=== PATIENT | female | born 1990 | race Caucasian/White ===

== ENCOUNTER 2017-02-05 21:01 | Emergency (ER) | payer SELFPAY ==
[~2017-02-05] VITALS: Ht 172.7 cm; Wt 63.0 kg
[2017-02-05 23:12] VITALS: BP 123/75
[2017-02-05] MEDS ORDERED: SODIUM CHLORIDE 0.9% 500 ML IV ONE (23:46)
[2017-02-06 00:13] LABS: BASOPHILS % 0.3 % (0.0-2.0); EOSINOPHILS % 0.4 % (0.0-5.0); HEMATOCRIT. 39.8 % (36.0-48.0); HEMOGLOBIN. 13.6 g/dL (12.0-16.0); LYMPHOCYTES % 15.3 % (20.0-50.0); MEAN CORPUSCULAR HEMOGLOBIN 32.4 pg (28.0-32.0); MEAN CORPUSCULAR VOLUME 94.7 fL (81.0-99.0); MONOCYTES % 2.4 % (2.0-8.0); NEUTROPHILS % 81.6 % (40.0-76.0); PLATELET 124 x1000/uL (130-400); RED BLOOD CELL COUNT 4.21 mill/uL (4.2-5.4); RED CELL DISTRIBUTION WIDTH 13.2 % (11.6-14.6)
[2017-02-06 00:17] LABS: CHLORIDE 106 mEq/L (98-107)
[2017-02-06 00:28] LABS: CARBON DIOXIDE 27 mEq/L (21-32); ETHANOL BLOOD 206 mg/dL
== END 2017-02-06 00:45 | disposition home or self-care (01) ==
LOC: ER 21:27
DX: F10.129 Alcohol abuse with intoxication, unspecified (principal); R11.2 Nausea with vomiting, unspecified
CPT/HCPCS: 36415; 80053; 81025; 85025; 99284; G0482; J7040